=== PATIENT | male | born 1985 | race Two or more races ===

== ENCOUNTER 2023-09-03 10:13 | Inpatient (IN) | payer MEDICAID, OTHER ==
[~2023-09-03] VITALS: Ht 180.3 cm; Wt 79.0 kg
[2023-09-03] MEDS: SODIUM CHLORIDE 0.9% 1,000 ML IV SCH ×5 (02:30→19:54)
[2023-09-03] MEDS ORDERED: SODIUM BICARBONATE 8.4 % INJ 50ML VIAL IV ONE (10:30)
[2023-09-03] MEDS ORDERED: InsuLIN REG 1unit/0.01ml Soln (100units/ml) IV ONE (10:30)
[2023-09-03] MEDS ORDERED: SODIUM CHLORIDE 0.9% 1,000 ML IV ONE ×2 (10:30)
[2023-09-03 10:46] VITALS: PULSE 104; RESP 25; O2SAT 100
[2023-09-03 11:10] LABS: Basophils # (auto) 0.3 10 ^3/uL (0-0.2); Basophils % (auto) 1.3 % (0.0-2.0); Eosinophils # (auto) 0 10 ^3/uL (0-0.8); Hematocrit 45.4 % (41.0-53.0); Hemoglobin 14.8 g/dL (13.5-17.5); Lymphocytes # (auto) 0.8 10 ^3/uL (0.4-5.4); Lymphocytes % (auto) 3.9 % (10.0-50.0); Mean Corpuscular Hgb Conc. 32.7 g/dL (32.0-36.0); Monocytes # (auto) 2.3 10 ^3/uL (0-1.3); Monocytes % (auto) 11.2 % (0.0-12.0); Neutrophils # (auto) 17.6 10 ^3/uL (1.6-8.6); Neutrophils % (auto) 83.6 % (37.0-80.0); Nucleated Red Blood Cells % 0.1 %; Red Blood Cells 4.63 10^6/uL (4.5-5.90); Red Cell Distribution Width 16.4 % (11.8-14.3)
[2023-09-03] MEDS ORDERED: PIPERACILLIN-TAZOB 3.375GM 100 ML IV ONE (11:30)
[2023-09-03 11:34] LABS: Alanine Aminotransferase 35 U/L (7-40); Albumin 4.8 g/dL (3.2-4.8); Alkaline Phosphatase 167 U/L (46-116); Anion Gap 27.00001 (5-15); Aspartate Aminotransferase 40 U/L (13-40); BUN/Creatinine Ratio 9.5 (10.0-20.0); Bilirubin, Total 1.8 mg/dL (0.2-1.0); Blood Urea Nitrogen 18 mg/dL (9-23); Calcium 9.8 mg/dL (8.7-10.4); Chloride 87 mmol/L (98-107); Magnesium 2.5 mg/dL (1.6-2.6); Potassium 5.3 mmol/L (3.5-5.1); Sodium 124 mmol/L (136-145); Total Protein 7.5 g/dL (5.7-8.2)
[2023-09-03 11:44] LABS: Carbon Dioxide < 10 mmol/L (20-30); Glucose 697 mg/dL (74-106); Lactic Acid w/Reflex 5.4 mmol/L (0.4-2.0)
[2023-09-03] MEDS ORDERED: INSULIN LANTUS (GLARGINE) 1 /0.01ml (100units/ml) SC ONE ×2 (12:00→17:15)
[2023-09-03] MEDS ORDERED: DEXTROSE (50%) 50ML SYRG IV PRN ×2 (12:00→17:15)
[2023-09-03] MEDS ORDERED: INSULIN DRIP 100 UNIT/100ML 100 ML IV SCH ×2 (12:00→17:15)
[2023-09-03 12:41] LABS: Urine Bacteria FEW /hpf (None Seen); Urine Blood Negative /uL (Negative); Urine Clarity Clear (Clear); Urine Protein, UAD TRACE (Negative); Urine Specific Gravity 1.017 (1.001-1.035); Urine Urobilinogen Normal (Negative); Urine WBC <1 /hpf (0 - 3)
[2023-09-03] MEDS: ACCU-CHEK COMFORT CURVE STRIP VI SCH ×8 (12:47→22:34)
[2023-09-03 13:01] LABS: Urine Color Yellow (Yellow)
[2023-09-03] MEDS ORDERED: ONDANSETRON HCL 4 MG/2 ML VIAL IV ONE (13:15)
[2023-09-03] MEDS ORDERED: fentaNYL CITRATE 100 MCG/2 ML VL IV ONE (13:15)
[2023-09-03] MEDS ORDERED: fentaNYL CITRATE 100 MCG/2 ML VL ONE (13:20)
[2023-09-03] MEDS ORDERED: ONDANSETRON HCL 4 MG/2 ML VIAL ONE ×2 (13:20→18:06)
[2023-09-03] MEDS ORDERED: HYDROcodone-ACET 5/325MG TAB ONE ×2 (15:36→21:25)
[2023-09-03] MEDS ORDERED: HYDROcodone-ACET 5/325MG TAB PO ONE (15:45)
[2023-09-03] MEDS ORDERED: SODIUM CHLORIDE 0.9% 1,000 ML IV SCH ×3 (16:00→21:15)
[2023-09-03 16:36] LABS: Chloride 96 mmol/L (98-107); Potassium 4.8 mmol/L (3.5-5.1)
[2023-09-03 16:37] LABS: Anion Gap 23.00001 (5-15)
[2023-09-03 16:38] LABS: Calcium 8.7 mg/dL (8.5-10.1)
[2023-09-03 16:43] LABS: BUN/Creatinine Ratio 7.6 (10.0-20.0); Blood Urea Nitrogen 12 mg/dL (9-23)
[2023-09-03 16:50] LABS: Glucose 390 mg/dL (74-106); Sodium 129 mmol/L (136-145)
[2023-09-03 16:54] LABS: Carbon Dioxide < 10 mmol/L (20-30)
[2023-09-03] MEDS ORDERED: NITROGLYCERIN 0.4 MG SL TAB SL PRN (17:15)
[2023-09-03] MEDS ORDERED: HYDROcodone-ACET 5/325MG TAB PO PRN (17:15)
[2023-09-03] MEDS ORDERED: ONDANSETRON HCL 4 MG/2 ML VIAL IV PRN (17:15)
[2023-09-03] MEDS ORDERED: ACETAMINOPHEN 325 MG TAB PO PRN (17:15)
[2023-09-03] MEDS ORDERED: MORPHINE SULFATE INJ 2 MG/ml SYRG IV PRN (17:15)
[2023-09-03] MEDS ORDERED: DOCUSATE SOD 100 MG CAP PO PRN (17:15)
[2023-09-03 17:37] LABS: Basophils # (auto) 0 10 ^3/uL (0-0.2); Basophils % (auto) 0.2 % (0.0-2.0); Eosinophils # (auto) 0 10 ^3/uL (0-0.8); Hematocrit 42.9 % (41.0-53.0); Hemoglobin 14.5 g/dL (13.5-17.5); Lymphocytes # (auto) 0.7 10 ^3/uL (0.4-5.4); Lymphocytes % (auto) 4.5 % (10.0-50.0); Mean Corpuscular Hemoglobin 31.8 pg (28.0-32.0); Mean Corpuscular Hgb Conc. 33.8 g/dL (32.0-36.0); Mean Corpuscular Volume 93.9 fL (80.0-100.0); Monocytes # (auto) 1.4 10 ^3/uL (0-1.3); Neutrophils % (auto) 86.3 % (37.0-80.0); Nucleated Red Blood Cells % 0.1 %; Red Blood Cells 4.57 10^6/uL (4.5-5.90); Red Cell Distribution Width 16.7 % (11.8-14.3); White Blood Cell 15.1 10^3/uL (4.4-10.8)
[2023-09-03] MEDS ORDERED: MORPHINE SULFATE INJ 2 MG/ml SYRG ONE (18:06)
[2023-09-03] MEDS: MORPHINE SULFATE INJ 2 MG/ml SYRG IV PRN (18:16)
[2023-09-03 19:10] LABS: Magnesium 1.9 mg/dL (1.6-2.6)
[2023-09-03 19:12] LABS: Phosphorus 3.6 mg/dL (2.4-5.1)
[2023-09-03] MEDS: INSULIN DRIP 100 UNIT/100ML 100 ML IV SCH (19:30)
[2023-09-03 20:00] VITALS: PULSE 94; RESP 25; O2SAT 100
[2023-09-03 23:01] LABS: Potassium 3.8 mmol/L (3.5-5.1)
[2023-09-03 23:02] LABS: Anion Gap 14 (5-15); Carbon Dioxide 12 mmol/L (20-30)
[2023-09-03 23:03] LABS: Calcium 8.1 mg/dL (8.7-10.4)
[2023-09-03 23:04] LABS: Chloride 110 mmol/L (98-107); Sodium 136 mmol/L (136-145)
[2023-09-03 23:08] LABS: BUN/Creatinine Ratio 5.6 (10.0-20.0); Blood Urea Nitrogen 6 mg/dL (9-23)
[2023-09-03 23:17] LABS: Glucose 163 mg/dL (74-106)
[2023-09-04] VITALS (9 sets, daily range): BP systolic 117–145; BP diastolic 76–94; PULSE 81–113; RESP 13–22; TEMP 36.8; O2SAT 96–100
[2023-09-04] MEDS: ACCU-CHEK COMFORT CURVE STRIP VI SCH ×11 (00:03→22:30)
[2023-09-04 01:00] LABS: Base Excess -12.2 mmol/L (-2.0-2.0)
[2023-09-04 03:05] LABS: Chloride 116 mmol/L (98-107); Potassium 3.2 mmol/L (3.5-5.1); Sodium 141 mmol/L (136-145)
[2023-09-04 03:06] LABS: Anion Gap 13 (5-15); Carbon Dioxide 12 mmol/L (20-30)
[2023-09-04 03:11] LABS: Glucose 112 mg/dL (74-106)
[2023-09-04 03:27] LABS: BUN/Creatinine Ratio 6.3 (10.0-20.0); Blood Urea Nitrogen < 5 mg/dL (9-23)
[2023-09-04] MEDS ORDERED: POTASSIUM EFFERVESENT TAB 25 MEQ PO ONE (04:00)
[2023-09-04] MEDS ORDERED: CALCIUM GLUC 1,000mg/50ml-NS 50 ML IV ONE ×2 (04:00→04:06)
[2023-09-04] MEDS ORDERED: DEXTROSE (50%) 50ML SYRG IV PRN (04:00)
[2023-09-04] MEDS ORDERED: POTASSIUM EFFERVESENT TAB 25 MEQ ONE ×2 (04:07→13:32)
[2023-09-04] MEDS: SODIUM CHLORIDE 0.9% 1,000 ML IV SCH ×3 (05:55→20:37)
[2023-09-04 07:03] LABS: Basophils # (auto) 0 10 ^3/uL (0-0.2); Basophils % (auto) 0.5 % (0.0-2.0); Eosinophils # (auto) 0 10 ^3/uL (0-0.8); Eosinophils % (auto) 0.1 % (0.0-7.0); Hematocrit 38.2 % (41.0-53.0); Hemoglobin 13.1 g/dL (13.5-17.5); Lymphocytes # (auto) 0.5 10 ^3/uL (0.4-5.4); Lymphocytes % (auto) 8.2 % (10.0-50.0); Mean Corpuscular Hemoglobin 31.7 pg (28.0-32.0); Mean Corpuscular Hgb Conc. 34.3 g/dL (32.0-36.0); Mean Corpuscular Volume 92.4 fL (80.0-100.0); Monocytes # (auto) 0.9 10 ^3/uL (0-1.3); Monocytes % (auto) 14.2 % (0.0-12.0); Neutrophils # (auto) 4.9 10 ^3/uL (1.6-8.6); Nucleated Red Blood Cells % 0.1 %; Red Blood Cells 4.13 10^6/uL (4.5-5.90); White Blood Cell 6.3 10^3/uL (4.4-10.8)
[2023-09-04] MEDS ORDERED: InsuLIN REG 1unit/0.01ml Soln (100units/ml) ONE ×3 (07:12→13:32)
[2023-09-04] MEDS: InsuLIN REG 1unit/0.01ml Soln (100units/ml) SC SCH ×5 (07:13→20:00)
[2023-09-04] MEDS ORDERED: OMNIPAQUE 12mg/ml 500ml ORAL SOLUTION PO ONE (07:24)
[2023-09-04 07:31] LABS: Alanine Aminotransferase 25 U/L (7-40); Albumin 4.2 g/dL (3.2-4.8); Alkaline Phosphatase 117 U/L (46-116); Anion Gap 17 (5-15); Aspartate Aminotransferase 26 U/L (13-40); BUN/Creatinine Ratio 4.7 (10.0-20.0); Bilirubin, Total 1.3 mg/dL (0.2-1.0); Blood Urea Nitrogen < 5 mg/dL (9-23); Calcium 9.3 mg/dL (8.7-10.4); Carbon Dioxide 12 mmol/L (20-30); Chloride 108 mmol/L (98-107); Glucose 163 mg/dL (74-106); Potassium 4.1 mmol/L (3.5-5.1); Sodium 137 mmol/L (136-145); Total Protein 6.7 g/dL (5.7-8.2)
[2023-09-04] MEDS: ENOXAPARIN SOD 40 MG/0.4 ML SYRINGE SC SCH (10:00)
[2023-09-04] MEDS ORDERED: IOHEXOL 300 MG/ML 100ML BOTTLE IJ ONE (10:12)
[2023-09-04 11:28] LABS: Chloride 107 mmol/L (98-107); Sodium 136 mmol/L (136-145)
[2023-09-04 11:29] LABS: Anion Gap 16 (5-15); Calcium 9.2 mg/dL (8.5-10.1); Carbon Dioxide 13 mmol/L (20-30)
[2023-09-04 11:34] LABS: BUN/Creatinine Ratio 4.8 (10.0-20.0); Blood Urea Nitrogen < 5 mg/dL (9-23); Glucose 149 mg/dL (74-106)
[2023-09-04] MEDS: MORPHINE SULFATE INJ 2 MG/ml SYRG IV PRN (12:26)
[2023-09-04] MEDS: INSULIN LANTUS (GLARGINE) 1 /0.01ml (100units/ml) SC SCH (12:28)
[2023-09-04] MEDS: POTASSIUM EFFERVESENT TAB 25 MEQ PO SCH (13:36)
[2023-09-04 17:10] LABS: Chloride 105 mmol/L (98-107); Potassium 4.2 mmol/L (3.5-5.1); Sodium 135 mmol/L (136-145)
[2023-09-04 17:11] LABS: Anion Gap 16 (5-15); Calcium 9.1 mg/dL (8.5-10.1); Carbon Dioxide 14 mmol/L (20-30)
[2023-09-04 17:16] LABS: Glucose 199 mg/dL (74-106)
[2023-09-04 17:18] LABS: Blood Urea Nitrogen < 5 mg/dL (9-23)
[2023-09-04] MEDS: INSULIN DRIP 100 UNIT/100ML 100 ML IV SCH ×4 (18:13→22:30)
[2023-09-05] VITALS (10 sets, daily range): BP systolic 110–127; BP diastolic 62–78; PULSE 16–95; RESP 12–16; TEMP 98.8–99; O2SAT 96–100
[2023-09-05] MEDS: MORPHINE SULFATE INJ 2 MG/ml SYRG IV PRN ×3 (00:51→12:33)
[2023-09-05] MEDS: ACCU-CHEK COMFORT CURVE STRIP VI SCH ×10 (01:45→13:40)
[2023-09-05] MEDS: INSULIN DRIP 100 UNIT/100ML 100 ML IV SCH ×5 (01:50→07:06)
[2023-09-05] MEDS: InsuLIN REG 1unit/0.01ml Soln (100units/ml) SC SCH ×3 (04:00→08:00)
[2023-09-05] MEDS: SODIUM CHLORIDE 0.9% 1,000 ML IV SCH ×3 (07:07→14:00)
[2023-09-05 10:04] LABS: Basophils # (auto) 0 10 ^3/uL (0-0.2); Basophils % (auto) 0.6 % (0.0-2.0); Eosinophils # (auto) 0 10 ^3/uL (0-0.8); Eosinophils % (auto) 0.8 % (0.0-7.0); Hematocrit 29.8 % (41.0-53.0); Hemoglobin 10.5 g/dL (13.5-17.5); Lymphocytes # (auto) 0.8 10 ^3/uL (0.4-5.4); Lymphocytes % (auto) 27.3 % (10.0-50.0); Mean Corpuscular Hemoglobin 32.6 pg (28.0-32.0); Mean Corpuscular Hgb Conc. 35.4 g/dL (32.0-36.0); Monocytes # (auto) 0.5 10 ^3/uL (0-1.3); Neutrophils # (auto) 1.7 10 ^3/uL (1.6-8.6); Neutrophils % (auto) 55.3 % (37.0-80.0); Nucleated Red Blood Cells % 0.1 %; Red Blood Cells 3.23 10^6/uL (4.5-5.90); Red Cell Distribution Width 16.5 % (11.8-14.3)
[2023-09-05 10:06] LABS: Anion Gap 9 (5-15); Carbon Dioxide 21 mmol/L (20-30); Chloride 108 mmol/L (98-107); Potassium 3.3 mmol/L (3.5-5.1); Sodium 138 mmol/L (136-145)
[2023-09-05 10:12] LABS: Glucose 234 mg/dL (74-106)
[2023-09-05 10:20] LABS: BUN/Creatinine Ratio 5.2 (10.0-20.0); Blood Urea Nitrogen < 5 mg/dL (9-23)
[2023-09-05] MEDS ORDERED: POTASSIUM EFFERVESENT TAB 25 MEQ ONE (10:37)
[2023-09-05] MEDS: INSULIN LANTUS (GLARGINE) 1 /0.01ml (100units/ml) SC SCH (10:50)
[2023-09-05] MEDS: POTASSIUM EFFERVESENT TAB 25 MEQ PO SCH (10:52)
[2023-09-05] MEDS: ENOXAPARIN SOD 40 MG/0.4 ML SYRINGE SC SCH (10:52)
[2023-09-05] MEDS ORDERED: DEXTROSE (50%) 50ML SYRG IV PRN (15:00)
[2023-09-05] MEDS ORDERED: ACCU-CHEK COMFORT CURVE STRIP VI SCH (17:00)
[2023-09-05] MEDS ORDERED: InsuLIN REG 1unit/0.01ml Soln (100units/ml) SC SCH ×2 (17:00→22:00)
[2023-09-05] MEDS ORDERED: DOXYCYCLINE 100MG/250ML 250 ML IV ONE (17:30)
[2023-09-06] MEDS ORDERED: INSULIN LANTUS (GLARGINE) 1 /0.01ml (100units/ml) SC SCH (10:00)
== END 2023-09-05 19:40 | disposition home or self-care (01) | DRG 420 ==
LOC: EDBD 10:13 → ER 10:13 → TELE 17:12 → TELE-CENTR 09-04 09:50 → DOU IN ICU 09-04 17:43
PROVIDERS: ADMIT Internal Medicine; ATTEND Internal Medicine
DX: E11.10 Type 2 diabetes mellitus with ketoacidosis without coma (principal); N17.9 Acute kidney failure, unspecified; D72.829 Elevated white blood cell count, unspecified; F31.9 Bipolar disorder, unspecified; I10 Essential (primary) hypertension; Z79.4 Long term (current) use of insulin; Z91.148 Patient's other noncompliance with medication regimen for other reason
CPT/HCPCS: 36415; 36600; 71045; 74177; 80048; 80053; 81001; 82010; 82805; 82962; 83036; 83605; 83735; 83880; 83930; 84100; 84484; 85025; 87040; 87081; 99291; G0378; J1815; J2405; J2543; J3490